=== PATIENT | female | born 2005 | race Hispanic/Latino ===

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

== ENCOUNTER 2025-01-14 10:15 | Day surgery (SDC) | payer OTHER ==
[2025-01-14 10:39] LABS: Urine Specific Gravity/Preg >1.030 (1.005-1.030)
[2025-01-14] MEDS: Ringers Lactate 1,000 ML IV ONE (10:45)
[2025-01-14 11:04] LABS: Absolute Basophils 0.1 K/uL (0-0.5); Absolute Eosinophils 0.1 K/uL (0-0.5); Absolute Lymphocytes (CBC) 2.1 K/uL (0.7-4.9); Absolute Monocytes 0.5 K/uL (0.1-1.3); Absolute Neutrophil 3.5 K/uL (1.8-8.0); Basophils % 1.1 % (0-1.3); Eosinophils % 1.8 % (0-4.4); Hematocrit 38.6 % (36.0-45.0); Hemoglobin 12.8 g/dL (12.0-15.0); Lymphocytes % 33.7 % (15.3-44.8); MCH 27.3 pg (27.0-35.0); MCHC 33.1 g/dL (32.0-36.0); MCV 82.4 fL (80-100); MPV 7.5 fL (7.6-11.3); Monocytes % 8.4 % (3.3-12.3); Platelets 298 thou/uL (152-406); RBC Red Blood Cell Count 4.68 M/uL (3.86-4.86); Red Cell Distribution Width 14.3 % (12.1-15.2)
[2025-01-14] MEDS: FAMOTIDINE 20 MG/2 ML VIAL IV ONE (11:08)
[2025-01-14 11:17] LABS: Anion Gap 9.9 mEq/L (5.0-15.0); Potassium 3.9 mEq/L (3.5-5.1)
[2025-01-14] MEDS ORDERED: LIDOCAINE 2% MPF 5 ML VIAL ONE (12:04)
[2025-01-14] MEDS ORDERED: FENTANYL CITR 100 MCG/2 ML ONE ×2 (12:04→13:24)
[2025-01-14] MEDS ORDERED: ONDANSETRON 4 MG/2 ML VIAL ONE (12:04)
[2025-01-14] MEDS ORDERED: propofoL 200 MG/20 ML VIAL IV ONE (12:04)
[2025-01-14] MEDS ORDERED: ROCURONIUM 50 MG/5 ML VIAL IV ONE (12:05)
[2025-01-14] MEDS ORDERED: MIDAZOLAM HCL 2 MG/2 ML INJ ONE (12:05)
[2025-01-14] MEDS ORDERED: CEFAZOLIN SODIUM 1 GM/VIAL ONE (12:24)
[2025-01-14] MEDS: METHYLENE BLUE 1% 10 ML VIAL ONE (13:10)
[2025-01-14] MEDS: BUPIVACAINE 0.5% PF 10 ML VIAL ONE (13:11)
[2025-01-14] MEDS ORDERED: dexAMETHasone 10 MG/ML VIAL ONE (13:12)
--- NOTE | 2025-01-14 14:19 | P.BOP ---
Preoperative diagnosis: pilonidal cyst Postoperative diagnosis: same Primary procedure: Wide excision of pilonidal cyst Estimated blood loss: <10cc Specimen: cyst Findings: cyst Anesthesia: General Complications: None Transferred to: Recovery Room Condition: Good
[2025-01-14] MEDS: CODEINE 30MG/APAP 300MG TAB ONE (14:55)
[2025-01-14 15:22] VITALS: BP 121/61; TEMP 98.4; O2SAT 100
== END 2025-01-14 15:26 | disposition home or self-care (01) ==
LOC: OR 10:15
PROVIDERS: ATTEND Surgery
PROC: 0JB90ZZ Excision of Buttock Subcutaneous Tissue and Fascia, Open Approach (ICD-10-PCS; principal; 2025-01-14 12:30)
DX: L05.91 Pilonidal cyst without abscess (principal)
CPT/HCPCS: 85025; 80048; 36415; 81025; 11770; J2704; J2003; J2250; J3010 ×2; J1100; J2405; J7120; J0690